=== PATIENT | male | born 1955 | race Caucasian/White ===

== ENCOUNTER 2019-02-15 19:13 | Emergency (ER) | payer MEDICARE, BC ==
--- NOTE | 2019-02-15 19:46 | EDM.PDOC ---
ED HPI GENERAL MEDICAL PROBLEM - General Chief Complaint: General Stated Complaint: KNEE INJURY Time Seen by Provider: 02/15/19 19:15 Source of Information: Reports: Patient History Limitations: Reports: No Limitations - History of Present Illness INITIAL COMMENTS - FREE TEXT/NARRATIVE: According to patient [place] He tripped over the rock and fell about 10 feet and landed on his right knee. Has been having pain over the lower aspect of the knee and is swollen. Happened about 2 hrs ago. He drove about 90 miles to the hospital. He has noticed some swelling of the knee. He cannot bear weight on the right knee as it hurts. Cannot extend the right knee. Has some superficial skin abrasion s over the left leg and the right forearm. No other injuries. No tingling or numbness in the right leg or foot. No extreme pain in the right lower extremity. Onset: Today Onset Date: 02/15/19 Onset Time: 17:00 Location: Reports: Lower Extremity, Right Quality: Reports: Ache Severity: Moderate Improves with: Reports: None Worsens with: Reports: None Associated Symptoms: Denies: Confusion, Chest Pain, Cough, Diaphoresis, Fever/ Chills, Headaches, Nausea/Vomiting, Rash, Seizure, Shortness of Breath, Syncope , Weakness Right Knee Pain Score (Numeric/FACES): 10 - Related Data Allergies Allergy/AdvReac Type Severity Reaction Status Date / Time ENVIRONMENTAL Allergy Sneezing Uncoded 02/15/19 19:16 ED ROS GENERAL - Review of Systems Review Of Systems: See Below Constitutional: Denies: Fever, Chills HEENT: Denies: Rhinitis, Throat Pain Respiratory: Denies: Shortness of Breath, Pleuritic Chest Pain, Cough, Sputum Cardiovascular: Denies: Chest Pain, Lightheadedness GI/Abdominal: Denies: Abdominal Pain, Diarrhea, Nausea, Vomiting Musculoskeletal: Reports: Leg Pain, Joint Pain, Joint Swelling Skin: Reports: Bruising. Denies: Pruritis, Rash Neurological: Denies: Confusion, Dizziness, Headache, Numbness, Syncope, Tingling ED EXAM, GENERAL - Physical Exam Exam: See Below Exam Limited By: No Limitations General Appearance: Alert, WD/WN, Mild Distress, Obese Eye Exam: Bilateral Eye: EOMI, PERRL Ears: Normal External Exam, Normal Canal, Hearing Grossly Normal, Normal TMs Ear Exam: Bilateral Ear: Auricle Normal, Canal Normal, TM normal Nose: Normal Inspection, Normal Mucosa, No Blood Throat/Mouth: Normal Inspection, Normal Lips, Normal Teeth, Normal Gums, Normal Oropharynx, Normal Voice, No Airway Compromise Head: Atraumatic, Normocephalic Neck: Normal Inspection, Supple, Non-Tender, Full Range of Motion Respiratory/Chest: No Respiratory Distress, Lungs Clear, Normal Breath Sounds, No Accessory Muscle Use, Chest Non-Tender Cardiovascular: Normal Peripheral Pulses, Regular Rate, Rhythm, No Edema, No Gallop, No JVD, No Murmur, No Rub GI/Abdominal: Normal Bowel Sounds, Soft, Non-Tender, Pelvis Stable Extremities: No Pedal Edema, Normal Capillary Refill, Other (Right lower extremity: ther is swelling and contusion aroudn the anterior knee joint. Also there is swelling of the right calf. He has good ROM at the right ankle. He has good flexion of the knee.But very weak extension of the leg. On palaption: No calf tenderness. tender over the upper tibia. No crepitus felt.Good pedal pulses ). No: Shea's Sign Skin Exam: Warm, Intact, Other (There are multiple abrasion over the ventral apect of the right forearm. Most of the abrasions are hemostatic. Minimal tenderness. LEft leg: there are several superficial hemostatic abrasions over the left leg anteriorly.) Course - Vital Signs Text/Narrative:: Pt apparently [place] 10 [place] and landed on hie right knee direct impact. His X-ray of the right knee shows comminuted intraarticular fracture of the upper tibia. His right ankle X-ray appear normal. He does have good pedal pulses. Also his leg is swollen around the calf, but no calf tenderness, I do not see any signs of compartment syndrome at this point. I did discuss with Patient the findings. I have very clearly tried to explain to patient that I need to contact the nearest available facility for transfer and if there is no available provider then would call the next closest facility. Pt prefers to be transferred to [facility] [place], [place]. I did contact them and the hospital is full with no available inpatient bed. I did call [facility] one call , Discuss patient with , the orthopedist economic research analyst. His recommendation was to admit patient for observation and apply knee brace and monitor him for Compartmental syndrome for 24 hrs. If he does develop compartmental syndrome needs immediate transfer to [facility], otherwise he could be non-weight bearing with crutches and followup with his orthopedist in next 2-3 days and have the workup down at [place], [place]. I have discussed the recommendations with patient, and he agrees with the plan. I have applied Knee brace on. Also his calf is soft and nontender. He does have strong pedal pulse. He did receive Dilaudid for his knee pain. Plan is to keep the right lower extremity elevated and monitor his neurovascular exam of the right lower extremity every 2 hrs. Dilaudid 1mg IV every 4 hrs as needed for knee pain. Last Recorded V/S: Last Vital Signs Temp 97.9 F 02/15/19 20:19 Pulse 73 02/15/19 21:27 Resp 16 02/15/19 21:27 BP 132/89 02/15/19 21:27 Pulse Ox 95 02/15/19 21:27 - Orders/Labs/Meds Orders: Active Orders 24 hr Category Date Time Status Ankle Min 3V Rt [CR] Stat Exams 02/15/19 19:41 Taken Knee 1V or 2V Rt [CR] Stat Exams 02/15/19 19:41 Taken Meds: Medications Discontinued Medications Generic Name Dose Route Start Last Admin Trade Name Consuelo PRN Reason Stop Dose Admin Hydromorphone HCl 2 mg 02/15/19 20:17 02/15/19 20:25 Dilaudid IVPUSH 02/15/19 20:18 2 mg ONETIME ONE Administration Hydromorphone HCl Confirm 02/15/19 20:27 02/15/19 20:28 Dilaudid Administered 02/15/19 20:28 Not Given Dose 2 mg .ROUTE .STK-MED ONE Hydromorphone HCl 2 mg 02/15/19 20:30 Dilaudid IVPUSH 02/15/19 20:31 ONETIME ONE Departure - Departure Time of Disposition: 11:00 Disposition: Refer to Observation Condition: Fair Clinical Impression: Closed tibial fracture - Discharge Information *PRESCRIPTION DRUG MONITORING PROGRAM REVIEWED*: Not Applicable *COPY OF PRESCRIPTION DRUG MONITORING REPORT IN PATIENT CHAITANYA: Not Applicable Referrals: PCP,None [Primary Care Provider] - Forms: ED Department Discharge - Problem List & Annotations (1) Closed tibial fracture SNOMED Code(s): 684553868 Code(s): S82.209A - UNSP FRACTURE OF SHAFT OF UNSP TIBIA, INIT FOR CLOS FX Status: Acute Current Visit: Yes - Problem List Review Problem List Initiated/Reviewed/Updated: Yes - My Orders Last 24 Hours: My Active Orders 02/15/19 19:41 Ankle Min 3V Rt [CR] Stat Knee 1V or 2V Rt [CR] Stat - Assessment/Plan Last 24 Hours: My Active Orders 02/15/19 19:41 Ankle Min 3V Rt [CR] Stat Knee 1V or 2V Rt [CR] Stat Assessment:: Comminuted intraarticular fracture of the upper medial tibia Plan: Pt [place] landed on hie right knee direct impact. His X-ray of the right knee shows comminuted intraarticular fracture of the upper tibia. His right ankle X-ray appear normal. He does have good pedal pulses. Also his leg is swollen around the calf, but no calf tenderness, I do not see any signs of compartment syndrome at this point. I did discuss with Patient the findings. I have very clearly tried to explain to patient that I need to contact the nearest available facility for transfer and if there is no available provider then would call the next closest facility. Pt prefers to be transferred to [facility] at [place], [place]. I did contact them and the hospital is full with no available inpatient bed. I did call [facility] one call , Discuss patient with , the orthopedist economic research analyst. His recommendation was to admit patient for observation and apply knee brace and monitor him for Compartmental syndrome for 24 hrs. If he does develop compartmental syndrome needs immediate transfer to [facility], otherwise he could be non-weight bearing with crutches and followup with his orthopedist in next 2-3 days and have the workup down at [place], [place]. I have discussed the recommendations with patient, and he agrees with the plan. I have applied Knee brace on. Also his calf is soft and nontender. He does have strong pedal pulse. He did receive Dilaudid for his knee pain. Plan is to keep the right lower extremity elevated and monitor his neurovascular exam of the right lower extremity every 2 hrs. Dilaudid 1mg IV every 4 hrs as needed for knee pain.
[2019-02-15] MEDS ORDERED: HYDROmorphone 2 MG/ML SDV IVPUSH ONE (20:17)
[2019-02-15] MEDS ORDERED: HYDROmorphone 2 MG/ML SDV ONE ×2 (20:27→23:26)
[2019-02-15] MEDS ORDERED: HYDROmorphone 2 MG/ML Syringe IVPUSH ONE (20:30)
[2019-02-15] MEDS: HYDROmorphone 4 MG/ML Syringe IVPUSH PRN (23:34)
[2019-02-16] MEDS ORDERED: Ketorolac 30 MG/ML SDV IVPUSH ONE (02:15)
[2019-02-16] MEDS ORDERED: Levothyroxine 150 MCG Tab PO SCH (07:00)
[2019-02-16] MEDS: HYDROmorphone 4 MG/ML Syringe IVPUSH PRN ×3 (07:09→15:10)
[2019-02-16] MEDS ORDERED: Hydrochlorothiazide 12.5 MG Cap PO SCH (08:00)
[2019-02-16] MEDS ORDERED: Sertraline 100 MG Tab PO SCH (08:00)
[2019-02-16] MEDS: Omeprazole 20 MG Cap.CR PO SCH ×2 (09:21→11:00)
[2019-02-16] MEDS ORDERED: ClonazePAM 0.5 MG Tab PO SCH (09:45)
--- NOTE | 2019-02-16 09:56 | CR ---
DATE OF SERVICE: 02/15/19 CLINICAL DATA: Fall and injury to the right knee. RIGHT ANKLE: No acute fracture or dislocation. No lytic or blastic bone lesions. There is soft tissue swelling over the lateral malleolus. [id number] [facility]
--- NOTE | 2019-02-16 09:59 | CR ---
DATE OF SERVICE: 02/15/19 CLINICAL DATA: Fall. RIGHT KNEE: There is a comminuted intra-articular fracture through the proximal tibia. The fracture lines extend through the tibial tubercle and lateral tibial plateau. They are nondisplaced. No other fractures. There is a large joint effusion or hemarthrosis. [id number] [facility]
[2019-02-16] MEDS ORDERED: HYDROmorphone 2 MG/ML SDV ONE ×2 (10:54→16:26)
--- NOTE | 2019-02-16 16:04 | PCM.DCSUM1 ---
Discharge Summary - Hospital Course Free Text/Narrative:: Pt sustained right upper tibial comminuted fracture with intraarticular extension from a fall yesterday. He was evaluated in the emergency room. Dr. Juan, orthopedist at [facility] was consulted. He wanted patient in knee brace and monitored for compartmental syndrome for 24 hrs . Pt was admitted for observation.Pt has been doing fine. He leg muscles are soft. Also he does have strong palpable dorsalis pedis and posterior tibial pulse. His pain has bee controlled with Iv dilaudid over night. Pt has been monitored for 24 hrs from the time of trauma and is doing well. Pt reassured. I have discharge patient today. He is going to continue to wear the knee brace. Also he will be non-weight bearing on the right leg, with crutch walking. Advised elevation of the right lower extremity all the time. Have given him script for toradol 10mg TID and percocet 5/325mg TID prn. Pt advised to followup with his orthopaedist back home in 1-2 days. HPI Initial Comments: Pt has some pain with movement , but while rest his pain is at 1/10. pain controlled with Iv dilaudid. Brief History: Fell from a height of about 10 feet and landed on his right knee. Kindly see H&P for details Diagnosis: Stroke: No - Discharge Data Discharge Date: 02/16/19 Discharge Disposition: Home, Self-Care 01 Condition: Stable - Discharge Diagnosis/Problem(s) (1) Closed tibial fracture SNOMED Code(s): 581309323 ICD Code: S82.209A - UNSP FRACTURE OF SHAFT OF UNSP TIBIA, INIT FOR CLOS FX Status: Acute Current Visit: Yes - Patient Instructions Diet: Regular Diet as Tolerated Fluid Restriction: 1500 mL Activity: Non Weight Bearing - Discharge Plan *PRESCRIPTION DRUG MONITORING PROGRAM REVIEWED*: Not Applicable *COPY OF PRESCRIPTION DRUG MONITORING REPORT IN PATIENT CHAITANYA: Not Applicable Forms: ED Department Discharge Referrals: PCP,None [Primary Care Provider] - - Discharge Summary/Plan Comment DC Time >30 min.: Yes Discharge Summary/Plan Comment: He is going to continue to wear the knee brace. Also he will be non-weight bearing on the right leg, with crutch walking. Advised elevation of the right lower extremity all the time. Have given him script for toradol 10mg TID and percocet 5/325mg TID prn. Pt advised to followup with his orthopaedist back home in 1-2 days. - General Info Date of Service: 02/16/19 Functional Status: Reports: Pain Controlled, Tolerating Diet, Urinating - Review of Systems General: Denies: Fever, Fatigue HEENT: Denies: Headaches, Sinus Congestion, Sore Throat Pulmonary: Denies: Cough, Sputum Cardiovascular: Denies: Chest Pain, Lightheadedness Gastrointestinal: Denies: Abdominal Pain, Nausea, Vomiting Genitourinary: Denies: Dysuria, Frequency Musculoskeletal: Reports: Joint Pain, Joint Swelling Skin: Denies: Bruising, Pruritis, Rash Neurological: Denies: Confusion, Dizziness, Headache, Numbness, Tingling - Patient Data Vitals - Most Recent: Last Vital Signs Temp 98.3 F 02/16/19 08:00 Pulse 65 02/16/19 08:00 Resp 16 02/16/19 08:00 BP 147/98 H 02/16/19 08:00 Pulse Ox 97 02/16/19 08:00 Weight - Most Recent: 107.501 kg Med Orders - Current: Current Medications Atorvastatin Calcium (Lipitor) 40 mg PO BEDTIME FADI Carbidopa/Levodopa (Sinemet 25-100 Mg) 1 tab PO BEDTIME FADI Clonazepam (Klonopin) 0.5 mg PO DAILY [facility] Last Admin: 02/16/19 10:25 Dose: 0.5 mg Hydrochlorothiazide (Hydrochlorothiazide) 12.5 mg PO DAILY [facility] Last Admin: 02/16/19 09:22 Dose: 12.5 mg Hydromorphone HCl (Dilaudid) 1 mg IVPUSH Q4H PRN PRN Reason: Pain Last Admin: 02/16/19 15:10 Dose: 1 mg Levothyroxine Sodium (Levothyroxine) 137 mcg PO ACBREAKFAST [facility] Last Admin: 02/16/19 09:20 Dose: 137 mcg Omeprazole (Omeprazole) 20 mg PO DAILY [facility] Last Admin: 02/16/19 11:00 Dose: 20 mg Sertraline HCl (Zoloft) 100 mg PO DAILY [facility] Last Admin: 02/16/19 09:21 Dose: 100 mg Discontinued Medications Hydromorphone HCl (Dilaudid) 2 mg IVPUSH ONETIME ONE Stop: 02/15/19 20:18 Last Admin: 02/15/19 20:25 Dose: 2 mg Hydromorphone HCl (Dilaudid) Confirm Administered Dose 2 mg .ROUTE .STK-MED ONE Stop: 02/15/19 20:28 Last Admin: 02/15/19 20:28 Dose: Not Given Hydromorphone HCl (Dilaudid) 2 mg IVPUSH ONETIME ONE Stop: 02/15/19 20:31 Last Admin: 02/15/19 20:25 Dose: Not Given Hydromorphone HCl (Dilaudid) Confirm Administered Dose 2 mg .ROUTE .STK-MED ONE Stop: 02/15/19 23:27 Last Admin: 02/15/19 23:30 Dose: Not Given Hydromorphone HCl (Dilaudid) Confirm Administered Dose 2 mg .ROUTE .STK-MED ONE Stop: 02/16/19 10:55 Last Admin: 02/16/19 12:42 Dose: Not Given Ketorolac Tromethamine (Toradol) 30 mg IVPUSH ONETIME ONE Stop: 02/16/19 02:16 Last Admin: 02/16/19 02:24 Dose: 30 mg - Exam General: Reports: Alert, Oriented HEENT: Reports: Pupils Equal, Pupils Reactive, EOMI, Mucous Membr. Moist/[place] Neck: Reports: Supple Lungs: Reports: Clear to Auscultation, Normal Respiratory Effort Cardiovascular: Reports: Regular Rate, Regular Rhythm Extremities: Other (Pt's right knee in knee brace. Nroaml neurovascular exam of the right lower extremity. No signs of compartment syndrome.) Skin: Reports: Warm, Intact, Other (Abrasion are healing well over the right forearm and left leg. )
[2019-02-16] MEDS ORDERED: HYDROmorphone 2 MG/ML Syringe IVPUSH ONE (16:38)
[2019-02-16] MEDS ORDERED: ClonazePAM 1 MG Tab PO SCH (20:00)
[2019-02-16] MEDS ORDERED: atorvaSTATin 40 MG Tab PO SCH (20:00)
[2019-02-16] MEDS ORDERED: Carbidopa/Levodopa 25-100 MG Tab PO SCH (20:00)
== END 2019-02-16 17:00 | disposition home or self-care (01) ==
LOC: LB.ED 19:13 → UNDOADMOB 22:50 → LB.MS 22:50
PROVIDERS: ADMIT Family Medicine; ATTEND Family Medicine
DX: S82.191A Other fracture of upper end of right tibia, initial encounter for closed fracture (principal); W17.89XA Other fall from one level to another, initial encounter
CPT/HCPCS: 73560-RT; 73610-RT; 96374; 96375; 96376; 99284-25; A9270-GY; J1170; J1885